=== PATIENT | female | born 1985 | race Caucasian/White ===

== ENCOUNTER 2017-06-21 07:19 | Inpatient (IN) | payer OTHER ==
[~2017-06-21] VITALS: Ht 165.1 cm; Wt 72.6 kg
[2017-06-21] MEDS ORDERED: SODIUM CHLORIDE 0.9% 1,000 ML IV ONE ×2 (08:15→12:00)
[2017-06-21] MEDS ORDERED: ONDANSETRON HCL 4 MG/2 ML VIAL IV ONE (08:15)
[2017-06-21] MEDS ORDERED: cefTRIAXone 1GM/50ML D5W 50 ML IV ONE (08:15)
[2017-06-21] MEDS ORDERED: MORPHINE SULF INJ 2 MG/ML SYRINGE 1ML IV ONE (08:15)
[2017-06-21 08:38] LABS: Basophils # (auto) 0.1 uL; Basophils % (auto) 0.4 % (0.0-2.0); Eosinophils # (auto) 0.1 uL; Eosinophils % (auto) 0.4 % (0.0-7.0); Hematocrit 37.2 % (36.0-46.0); Hemoglobin 12.5 g/dL (12.2-16.2); Mean Corpuscular Hemoglobin 30.2 pg (28.0-32.0); Mean Corpuscular Hgb Conc. 33.7 g/dL (32.0-36.0); Mean Corpuscular Volume 89.6 fL (80.0-100.0); Mean Platelet Volume 8.5 fL (6.9-10.8); Monocytes # (auto) 0.7 uL; Monocytes % (auto) 4.7 % (0.0-12.0); Neutrophils # (auto) 12.6 uL; Neutrophils % (auto) 81.5 % (37.0-80.0); Platelet Count (auto) 227 10^3/uL (140-450); Red Cell Distribution Width 12.4 % (11.8-14.3); White Blood Cell 15.4 10^3/uL (4.4-10.8)
[2017-06-21 09:02] LABS: Albumin 3.9 g/dL (3.4-5.0); BUN/Creatinine Ratio 12.4; Bilirubin, Total 0.2 mg/dL (0.2-1.0); Calcium 8.5 mg/dL (8.5-10.1); Potassium 3.5 mmol/L (3.5-5.1)
[2017-06-21 09:10] LABS: Amylase 56 U/L (25-115)
[2017-06-21] MEDS ORDERED: VANCOMYCIN PER PHARMACY 0 MG IV SCH (12:00)
[2017-06-21] MEDS ORDERED: DOCUSATE SOD 100 MG CAP PO PRN (12:15)
[2017-06-21] MEDS ORDERED: HYDROcodone-ACET 5/325MG TAB PO PRN (12:15)
[2017-06-21] MEDS ORDERED: TEMAZEPAM 15 MG CAP PO PRN (12:15)
[2017-06-21] MEDS ORDERED: NITROGLYCERIN 0.4 MG SL TAB SL PRN (12:15)
[2017-06-21] MEDS ORDERED: ACETAMINOPHEN 325 MG TAB PO PRN (12:15)
[2017-06-21] MEDS ORDERED: ONDANSETRON HCL 4 MG/2 ML VIAL IV PRN (12:15)
[2017-06-21] MEDS ORDERED: MORPHINE SULF INJ 2 MG/ML SYRINGE 1ML IV PRN ×2 (12:15)
[2017-06-21] MEDS: VANCOMYCIN 1GM/250ML D5W 250 ML IV SCH (12:48)
[2017-06-21] MEDS: SODIUM CHLORIDE 0.9% 1,000 ML IV SCH ×2 (13:08→20:45)
[2017-06-21 14:10] LABS: INR 0.98 (0.9-1.15); Prothrombin Time 10.7 sec (9.37-12.3)
[2017-06-21 18:40] LABS: Lactic Acid w/Reflex 2.1 mmol/L (0.4-2.0)
[2017-06-21 19:11] LABS: REFLEX LACTIC ACID YES OR NO YES
[2017-06-21 23:56] LABS: Urine Bilirubin Negative (Negative); Urine Blood 2+ /uL (Negative); Urine Color Yellow (Yellow); Urine Glucose Normal (Normal); Urine Ketone TRACE (Negative); Urine Mucus FEW (None Seen); Urine Nitrite Negative (Negative); Urine RBC 89 /hpf (0 - 4); Urine Squamous Epithelial Cell FEW /hpf (<5); Urine Urobilinogen Normal (Negative); Urine pH 5.5 (5.0-8.0)
[2017-06-22] MEDS: VANCOMYCIN 1GM/250ML D5W 250 ML IV SCH (00:50)
[2017-06-22 04:25] LABS: Basophils # (auto) 0 uL; Basophils % (auto) 0.5 % (0.0-2.0); Eosinophils # (auto) 0.1 uL; Eosinophils % (auto) 0.9 % (0.0-7.0); Hematocrit 33.4 % (36.0-46.0); Hemoglobin 11.6 g/dL (12.2-16.2); Lymphocytes # (auto) 2.9 uL; Mean Corpuscular Hemoglobin 31.3 pg (28.0-32.0); Mean Corpuscular Hgb Conc. 34.7 g/dL (32.0-36.0); Mean Corpuscular Volume 90.1 fL (80.0-100.0); Mean Platelet Volume 8.2 fL (6.9-10.8); Monocytes # (auto) 1.1 uL; Monocytes % (auto) 9.9 % (0.0-12.0); Neutrophils # (auto) 6.5 uL; Neutrophils % (auto) 61.7 % (37.0-80.0); Platelet Count (auto) 207 10^3/uL (140-450); Red Cell Distribution Width 12.4 % (11.8-14.3); White Blood Cell 10.6 10^3/uL (4.4-10.8)
[2017-06-22 04:44] LABS: Albumin 3.1 g/dL (3.4-5.0); Calcium 7.8 mg/dL (8.5-10.1); Potassium 3.6 mmol/L (3.5-5.1)
[2017-06-22 04:50] LABS: BUN/Creatinine Ratio 10.8; Bilirubin, Total 0.5 mg/dL (0.2-1.0); Total Protein 6.4 g/dL (6.4-8.2)
[2017-06-22 07:06] VITALS: BP 106/53
[2017-06-22] MEDS: SODIUM CHLORIDE 0.9% 1,000 ML IV SCH (07:17)
[2017-06-22] MEDS ORDERED: cefTRIAXone 1GM/50ML D5W 50 ML IV SCH (09:00)
[2017-06-22] MEDS ORDERED: MULTIPLE VITAMIN TAB PO SCH (10:00)
== END 2017-06-22 13:15 | disposition home or self-care (01) | DRG 872 ==
LOC: ER 07:19 → TELE 07:20 → EAST 06-22 09:39
PROVIDERS: ADMIT Internal Medicine; ATTEND Internal Medicine
DX: A41.9 Sepsis, unspecified organism (principal); E44.0 Moderate protein-calorie malnutrition; N13.2 Hydronephrosis with renal and ureteral calculous obstruction; N18.2 Chronic kidney disease, stage 2 (mild); E86.0 Dehydration; D63.8 Anemia in other chronic diseases classified elsewhere; N18.9 Chronic kidney disease, unspecified; Z85.3 Personal history of malignant neoplasm of breast; Z87.442 Personal history of urinary calculi; Z68.26 Body mass index [BMI] 26.0-26.9, adult
CPT/HCPCS: 36415; 74176; 80053; 81001; 81025; 82150; 83605; 83690; 84702; 85025; 85610; 87040; 87086; 96361; 96365; 96375; 99291; J0696; J2405